=== PATIENT | male | born 1970 | race African-American/Black ===

== ENCOUNTER 2023-11-12 06:50 | Inpatient (IN) | payer OTHER ==
[2023-11-12] MEDS ORDERED: Aspirin Chewable 81 MG TAB ONE (07:09)
[2023-11-12] MEDS ORDERED: Heparin 10,000 UNITS/ 10 ML VIAL ONE ×3 (07:09→08:17)
[2023-11-12] MEDS ORDERED: TICAGRELOR 90 MG TABLET ONE (07:09)
[2023-11-12] MEDS ORDERED: Adenosine 6 mg (2 mL) VIAL ONE (07:12)
[2023-11-12] MEDS ORDERED: Verapamil 5 MG/2 ML VIAL ONE (07:12)
[2023-11-12] MEDS ORDERED: Heparin 25,000 units/D5W 500 ML ONE (07:16)
[2023-11-12 07:18] LABS: #Eosinphils 0.1 10x3/uL (0.0-0.5); #Monocytes 0.4 10x3/uL (0.0-1.1); #Neutrophils 1.6 10x3/uL (1.5-8.4); %Basophils 0.7 % (0.0-2.0); %Eosinophils 2.2 % (0.0-6.0); %Lymphocytes 48.4 % (18.0-47.0); %Monocytes 9.5 % (0.0-10.0); Hematocrit 43.2 % (38.8-50.0); Hemoglobin 13.9 g/dL (13.5-17.5); Mean Corpuscular HGB CONC 32.2 g/dL (32.0-36.0); Mean Corpuscular Hemoglobin 30.5 pg (27.0-33.0); Mean Corpuscular Volume 94.9 fl (81.2-95.1); Mean Platelet Volume 9.4 fl (7.4-10.4); Platelet Count 230 10x3/uL (150-450); RBC Distribution Width 12.6 % (11.5-14.5); Red Blood Cell (RBC) Count 4.55 10x6/uL (4.32-5.72); White Blood Cell (WBC) Count 4.1 10x3/uL (3.5-10.5)
[2023-11-12] MEDS ORDERED: diphenhydrAMINE 50 MG/ML VIAL ONE (07:24)
[2023-11-12] MEDS ORDERED: methylPREDNISolone Sod Succ 40 MG VIAL ONE (07:25)
[2023-11-12] MEDS ORDERED: methylPREDNISolone Sod Succ/PF 125 MG/2 ML VIAL ONE (07:25)
[2023-11-12 07:33] LABS: Acetaminophen Less than 10 mcg/mL (10.0-30.0); Alcohol Less than 10.0 mg/dL (Less than 10); Magnesium 1.9 mg/dL (1.6-2.6); Salicylate Less than 8.0 mg/dL (15.0-30.0)
[2023-11-12 07:34] LABS: D-Dimer Test 0.3 mcg/mL (0.19-0.50); PTT 27.6 sec (22.0-33.0); Prothrombin Time 10.9 sec (9.5-12.1)
[2023-11-12 07:36] LABS: ALT (SGPT) 30 U/L (8-55); AST (SGOT) 28 U/L (5-34); Albumin 4.4 g/dL (3.5-5.0); Alkaline Phosphatase 48 U/L (40-110); Anion Gap 16 mmol/L (10-20); BUN (Urea Nitrogen) 15 mg/dL (8.4-25.7); Bilirubin, Total 1.5 mg/dL (0.2-1.2); CK (CPK) 1124 U/L (30-200); Calc. Creatinine Clearance 0 mL/min (70-130); Calcium 9.5 mg/dL (7.8-10.44); Carbon Dioxide 26 mmol/L (22-29); Chloride 100 mmol/L (98-107); Estimated GFR 77; Globulin 3.4 g/dL (2.4-3.5); Glucose 106 mg/dL (70-105); Potassium 4.5 mmol/L (3.5-5.1); Protein, Total 7.8 g/dL (6.0-8.3); Sodium 137 mmol/L (136-145)
[2023-11-12] MEDS ORDERED: Midazolam HCl 2 mg/2 ml Vial ONE (07:37)
[2023-11-12] MEDS ORDERED: fentaNYL 50 mcg/mL 1 mL Vial ONE ×2 (07:37→08:05)
[2023-11-12 07:42] LABS: Troponin I Less than 0.010 ng/mL (< 0.028)
[2023-11-12 08:11] LABS: Influenza A by NAA Not Detected (NotDetected); Influenza B by NAA Not Detected (NotDetected); SARS-CoV-2 NAA Rapid Test Not Detected (NotDetected)
[2023-11-12] MEDS ORDERED: Lidocaine 1% (PF) 30 ML VIAL ONE (08:17)
[2023-11-12] MEDS ORDERED: Ondansetron ODT 4 MG TAB PO PRN (08:19)
[2023-11-12] MEDS ORDERED: HYDROcodone/Acetaminophen 5/325 mg Tablet PO PRN ×2 (08:19)
[2023-11-12] MEDS ORDERED: Senokot S 8.6-50 MG TAB PO PRN (08:19)
[2023-11-12] MEDS ORDERED: Loperamide HCl 2 MG CAP PO PRN (08:19)
[2023-11-12] MEDS ORDERED: Nitroglycerin 0.4 MG TAB (25 Tab Bottle) SL PRN (08:24)
[2023-11-12] MEDS ORDERED: Sodium Chloride 0.9% 200 ML IV PRN (08:24)
[2023-11-12] MEDS ORDERED: Acetaminophen/Codeine 30-300mg Tablet PO PRN ×2 (08:24)
[2023-11-12] MEDS ORDERED: Enoxaparin 40 MG (0.4 mL) SYRINGE SC SCH (09:00)
[2023-11-12] MEDS: TICAGRELOR 90 MG TABLET PO SCH (10:10)
[2023-11-12] MEDS: Aspirin 81 mg Enteric Coated Tablet PO SCH (10:10)
[2023-11-12] MEDS: Lisinopril 5 MG TAB PO SCH (10:10)
[2023-11-12 10:18] VITALS: BMI 41.3
[2023-11-12] MEDS ORDERED: Nitroglycerin 50 MG/250 ML BOT 250 ML ONE (10:57)
[2023-11-12] MEDS ORDERED: Iopamidol 300 61% 100 ML VIAL FS ONE (12:28)
[2023-11-12 13:14] LABS: Lactic Acid 3.9 mmol/L (0.5-2.2)
[2023-11-12] MEDS: Carvedilol 6.25 MG TAB PO SCH (16:13)
[2023-11-12 16:27] VITALS: TEMP 98.1
[2023-11-12 16:34] LABS: Troponin I Less than 0.010 ng/mL (< 0.028)
[2023-11-12] MEDS: Atorvastatin Calcium 40 MG TAB PO SCH (21:00)
[2023-11-12] MEDS: Calcium Carbonate 500 MG ChewTAB PO PRN (22:44)
[2023-11-13 03:27] LABS: ALT (SGPT) 26 U/L (8-55); AST (SGOT) 20 U/L (5-34); Alkaline Phosphatase 41 U/L (40-110); Anion Gap 15 mmol/L (10-20); BUN (Urea Nitrogen) 18 mg/dL (8.4-25.7); Bilirubin, Total 1.3 mg/dL (0.2-1.2); Calc. Creatinine Clearance 163 mL/min (70-130); Calcium 9.2 mg/dL (7.8-10.44); Carbon Dioxide 24 mmol/L (22-29); Chloride 101 mmol/L (98-107); Estimated GFR 86; Globulin 3.2 g/dL (2.4-3.5); Glucose 110 mg/dL (70-105); Potassium 3.8 mmol/L (3.5-5.1); Protein, Total 7.2 g/dL (6.0-8.3); Sodium 136 mmol/L (136-145)
[2023-11-13 03:36] LABS: #Monocytes 0.8 10x3/uL (0.0-1.1); #Neutrophils 4.5 10x3/uL (1.5-8.4); %Basophils 0.4 % (0.0-2.0); %Eosinophils 0.4 % (0.0-6.0); %Lymphocytes 32.3 % (18.0-47.0); %Monocytes 10.3 % (0.0-10.0); %Neutrophils 56.3 % (40.0-75.0); Hematocrit 39.7 % (38.8-50.0); Mean Corpuscular HGB CONC 32.7 g/dL (32.0-36.0); Mean Corpuscular Hemoglobin 30.8 pg (27.0-33.0); Mean Corpuscular Volume 94.1 fl (81.2-95.1); Mean Platelet Volume 9.1 fl (7.4-10.4); Platelet Count 217 10x3/uL (150-450); RBC Distribution Width 12.5 % (11.5-14.5); Red Blood Cell (RBC) Count 4.22 10x6/uL (4.32-5.72); White Blood Cell (WBC) Count 7.9 10x3/uL (3.5-10.5)
[2023-11-13 17:17] VITALS: BP 143/84
== END 2023-11-13 22:50 | DRG 322 ==
LOC: CSHERS 06:50 → EEVIPCON 06:50 → CSHCCL 08:53 → CSHIMCU 09:25
PROVIDERS: ADMIT Specialist; ATTEND Specialist
PROC: 027034Z Dilation of Coronary Artery, One Artery with Drug-eluting Intraluminal Device, Percutaneous Approach (ICD-10-PCS; principal; 2023-11-12)
PROC: 4A023N7 Measurement of Cardiac Sampling and Pressure, Left Heart, Percutaneous Approach (ICD-10-PCS; 2023-11-12)
PROC: B2151ZZ Fluoroscopy of Left Heart using Low Osmolar Contrast (ICD-10-PCS; 2023-11-12)
PROC: B2111ZZ Fluoroscopy of Multiple Coronary Arteries using Low Osmolar Contrast (ICD-10-PCS; 2023-11-12)
DX: I21.3 ST elevation (STEMI) myocardial infarction of unspecified site (principal); I10 Essential (primary) hypertension; I25.10 Atherosclerotic heart disease of native coronary artery without angina pectoris; Z87.891 Personal history of nicotine dependence
CPT/HCPCS: 71045; 80053; 80307; 82550; 83605; 83735; 83880; 84443; 84484; 85025; 85347; 85379; 85610; 85730; 86140; 86850; 86900; 86901; 92941; 93005; 93010; 93306; 93454; 96374; 99152; 99153; C1726; C1760; C1769; C1874; C9606; J0153; J1200; J1644; J1650; J2001; J2250; J2920; J2930; J3010; Q9967

== ENCOUNTER 2024-09-27 04:15 | Emergency (ER) | payer OTHER ==
[2024-09-27] MEDS ORDERED: Ketorolac Tromethamine 30 MG (1 mL) VIAL ONE (04:33)
[2024-09-27 04:54] LABS: Hematocrit 38.7 % (38.8-50.0); Hemoglobin 12.3 g/dL (13.5-17.5); Mean Corpuscular HGB CONC 31.8 g/dL (32.0-36.0); Mean Corpuscular Hemoglobin 30.3 pg (27.0-33.0); Mean Corpuscular Volume 95.3 fL (81.2-95.1); Mean Platelet Volume 8.9 fL (7.4-10.4); Platelet Count 187 10x3/uL (150-450); Red Blood Cell (RBC) Count 4.06 10x6/uL (4.32-5.72)
[2024-09-27 05:00] LABS: ALT (SGPT) 23 U/L (Less than 45); AST (SGOT) 26 U/L (11-34); Albumin 3.9 g/dL (3.1-4.5); Alkaline Phosphatase 51 U/L (40-110); Anion Gap 15 mmol/L (10-20); BUN (Urea Nitrogen) 12 mg/dL (8.4-25.7); Bilirubin, Total 1.3 mg/dL (0.3-1.2); Calc. Creatinine Clearance 0 mL/min (70-130); Calcium 8.8 mg/dL (7.8-10.44); Carbon Dioxide 21 mmol/L (22-29); Chloride 108 mmol/L (98-107); Estimated GFR 73; Globulin 2.9 g/dL (2.4-3.5); Glucose 102 mg/dL (70-105); Potassium 4.5 mmol/L (3.5-5.1); Protein, Total 6.8 g/dL (6.0-8.3); Sodium 139 mmol/L (136-145)
[2024-09-27 05:06] LABS: Troponin I 0.019 ng/mL (< 0.028)
[2024-09-27 05:27] LABS: Band 2 % (5-11); Lymphocytes 18 % (21-51); MDiff Complete? YES; Monocytes 16 % (0-10); Neutrophil 62 % (42-75); Platelet Adequacy Comment Appears Adequate; RBC Morphology Within Normal Limits; Reactive Lymphocytes 2 % (0-10)
[2024-09-27] MEDS ORDERED: Oseltamivir 75 MG CAP PO SCH (06:00)
[2024-09-27 06:49] LABS: Troponin I 0.014 ng/mL (< 0.028)
== END 2024-09-27 07:09 ==
LOC: CSHERS 04:15 → EEVIPCON 04:15 → CSHERS 07:09
DX: J10.1 Influenza due to other identified influenza virus with other respiratory manifestations (principal); I10 Essential (primary) hypertension; K21.9 Gastro-esophageal reflux disease without esophagitis; I73.9 Peripheral vascular disease, unspecified; Z75.3 Unavailability and inaccessibility of health-care facilities; Z87.891 Personal history of nicotine dependence; Z79.82 Long term (current) use of aspirin; Z79.899 Other long term (current) drug therapy; Z86.718 Personal history of other venous thrombosis and embolism
CPT/HCPCS: 36415; 71045; 80053; 83605; 83880; 84484; 85025; 87040; 87428; 93005; 96374; J1885